=== PATIENT | male | born 1960 | race Caucasian/White ===

== ENCOUNTER → 2016-09-18 | Outpatient (CLI) | payer OTHER ==
[~2016-09-18] MED LIST: AMOXICILLIN500 M2 PO; ANAPROX DS550 MG PO; ANTIVERT/2525 M1 PO; ANTIVERT25 MG PO; AUGMENTIN 875 M1 TAB PO; GLUCOTROL5 MG PO; METFORMIN500 MG PO; PREVACID SOLUTA30 MG PO; PRILOSEC20 M2 PO; PRINIVIL5 M1 PO; ZANTAC150 MG PO; ZOFRAN ODT4 MG SL
== END | disposition home or self-care (01) ==
LOC: RAD 16:29
DX: R05 Cough (principal)

== ENCOUNTER 2017-12-08 14:29 | Emergency (ER) | payer OTHER ==
[~2017-12-08] VITALS: Ht 162.5 cm; Wt 77.1 kg
[2017-12-08] MEDS ORDERED: SEPTDS PO (14:38)
[2017-12-08] MEDS ORDERED: NAPROSYN500 MG PO (14:38)
[2017-12-08] MEDS ORDERED: KEFLEX500 M1 PO (14:38)
== END 2017-12-08 14:51 | disposition home or self-care (01) ==
LOC: ED 14:29
DX: L02.413 Cutaneous abscess of right upper limb (principal); R03.0 Elevated blood-pressure reading, without diagnosis of hypertension; E11.65 Type 2 diabetes mellitus with hyperglycemia; Z79.84 Long term (current) use of oral hypoglycemic drugs; Z79.899 Other long term (current) drug therapy

== ENCOUNTER → 2017-12-09 | Outpatient (CLI) | payer OTHER ==
[~2017-12-09] MED LIST changes: +GLIPIZIDE ER10 M1 PO; +KEFLEX500 M1 PO; +LEVEMIR FL100 UNIT/1 SQ; +METFORMIN HYD1000 MG PO; +NAPROSYN500 MG PO; +OMEPRAZOLE40 MG PO; +SEPTDS PO; +VITAMIN D-32000 UNIT PO
== END | disposition home or self-care (01) ==
LOC: WOUNDCARE 00:21
DX: S41.001A Unspecified open wound of right shoulder, initial encounter (principal); L03.113 Cellulitis of right upper limb; E11.65 Type 2 diabetes mellitus with hyperglycemia; Z98.49 Cataract extraction status, unspecified eye; X58.XXXA Exposure to other specified factors, initial encounter; Y93.89 Activity, other specified; Y92.89 Other specified places as the place of occurrence of the external cause; Y99.8 Other external cause status

== ENCOUNTER 2017-12-11 22:36 | Inpatient (IN) | payer OTHER ==
[~2017-12-11] VITALS: Ht 162.5 cm; Wt 77.2 kg
[2017-12-11 22:36] VITALS: BP 130/72
[~2017-12-11 22:36] MED LIST changes: -GLIPIZIDE ER10 M1 PO; -LEVEMIR FL100 UNIT/1 SQ; -METFORMIN HYD1000 MG PO; -OMEPRAZOLE40 MG PO; -VITAMIN D-32000 UNIT PO
[2017-12-12 00:10] LABS: ALBUMIN 4.2 gm/dl (3.1-4.5); ALKALINE PHOSPHATASE 66 U/L (45-117); BUN 20 mg/dl (7-24); CHLORIDE 104 mmol/L (98-107); CREATININE 1.31 mg/dL (0.70-1.30); LIPASE 137 U/L (73-393); POTASSIUM 4.3 mmol/L (3.5-5.1); SGOT/AST 38 IU/L (3-35); SGPT/ALT 58 U/L (12-78); SODIUM 137 mmol/L (136-145); TOTAL PROTEIN 8.4 gm/dL (6.4-8.2)
[2017-12-12 00:14] LABS: BASO % 0.4 % (0.0-1.0); EOS # 0.1 10*3/uL (0.0-0.4); EOS % 1.5 % (1.0-4.0); HEMATOCRIT 36.5 % (42.0-52.0); LYMPH # 0.9 10*3/uL (1.3-4.4); LYMPH % 20.4 % (27.0-41.0); MEAN CELL VOLUME 83.1 fl (80.0-94.0); MEAN CORPUSCULAR HGB 29.6 pg (27.0-31.0); MEAN CORPUSCULAR HGB CONC 35.6 g/dl (33.0-37.0); MEAN PLATELET VOLUME 11.1 fl (9.6-12.3); MONO # 0.5 10*3/uL (0.1-1.0); MONO % 11.9 % (3.0-9.0); NEUT % 65.6 % (47.0-73.0); PLATELET COUNT AUTOMATED 129 10*3/uL (130-400); RED BLOOD COUNT 4.39 10*6/uL (4.50-5.90); RED CELL DISTRI WIDTH 11.6 % (0-14.5); WHITE BLOOD COUNT 4.5 10*3/uL (4.8-10.8)
[2017-12-12] MEDS ORDERED: GLIPIZIDE ER10 M1 PO (00:31)
[2017-12-12] MEDS ORDERED: METFORMIN HYD1000 MG PO (00:32)
[2017-12-12] MEDS ORDERED: OMEPRAZOLE40 MG PO (00:33)
[2017-12-12 00:50] VITALS: BP 125/67
[2017-12-12 01:35] VITALS: BP 125/67
[2017-12-12 02:29] LABS: BILIRUBIN NEGATIVE (NEGATIVE); BLOOD NEGATIVE (NEGATIVE); CLARITY CLEAR (CLEAR); COLOR YELLOW (YELLOW); GLUCOSE TRACE (NEGATIVE); KETONE NEGATIVE (NEGATIVE); LEUKO ESTERASE NEGATIVE (NEGATIVE); NITRITE NEGATIVE (NEGATIVE); PH 5.5 (5.0-9.0); UROBILINOGEN 0.2 E.U./dl (0.2-1.0)
[2017-12-12 02:36] LABS: EPITHELIAL CELLS 0-5
[2017-12-12 02:37] LABS: WBC 0-2 wbc/hpf (0-5)
[2017-12-12 07:43] LABS: BASO % 0.3 % (0.0-1.0); EOS # 0.1 10*3/uL (0.0-0.4); EOS % 1.8 % (1.0-4.0); HEMATOCRIT 34.2 % (42.0-52.0); HEMOGLOBIN 12.1 g/dl (14.0-18.0); LYMPH # 0.7 10*3/uL (1.3-4.4); LYMPH % 18.6 % (27.0-41.0); MEAN CELL VOLUME 83.6 fl (80.0-94.0); MEAN CORPUSCULAR HGB 29.6 pg (27.0-31.0); MEAN CORPUSCULAR HGB CONC 35.4 g/dl (33.0-37.0); MONO # 0.4 10*3/uL (0.1-1.0); MONO % 9.9 % (3.0-9.0); NEUT # 2.7 10*3/uL (2.3-7.9); NEUT % 69.1 % (47.0-73.0); PLATELET COUNT AUTOMATED 115 10*3/uL (130-400); RED BLOOD COUNT 4.09 10*6/uL (4.50-5.90); RED CELL DISTRI WIDTH 11.8 % (0-14.5); WHITE BLOOD COUNT 3.9 10*3/uL (4.8-10.8)
[2017-12-12 08:00] VITALS: BP 114/56
[2017-12-12 08:25] LABS: ALBUMIN 3.7 gm/dl (3.1-4.5); BUN 13 mg/dl (7-24); CHLORIDE 108 mmol/L (98-107); CHOLESTEROL 152 mg/dL (<200); CREATININE 1.12 mg/dL (0.70-1.30); POTASSIUM 3.5 mmol/L (3.5-5.1); SGOT/AST 33 IU/L (3-35); SGPT/ALT 46 U/L (12-78); SODIUM 141 mmol/L (136-145); TRIGLYCERIDES 215 mg/dl (<150); VLDL CHOLESTEROL 43 mg/dL (6-40)
[2017-12-12 08:33] LABS: ALKALINE PHOSPHATASE 58 U/L (45-117); FREE T4 1.11 ng/dl (0.76-1.46); HDL CHOLESTEROL 22 mg/dl (40-60); LDL CHOLESTEROL 87 mg/dL (9-159); TOTAL PROTEIN 6.9 gm/dL (6.4-8.2)
[2017-12-12 08:58] LABS: VITAMIN D, 25-HYDROXY 20.6 ng/mL (30-100)
[2017-12-12 12:00] VITALS: BP 118/58
[2017-12-12 16:00] VITALS: BP 103/56
[2017-12-12 20:00] VITALS: BP 128/48
[2017-12-13] VITALS: BP 104/49
[2017-12-13 06:10] LABS: BASO % 0.3 % (0.0-1.0); EOS # 0.1 10*3/uL (0.0-0.4); EOS % 3.3 % (1.0-4.0); HEMATOCRIT 32.5 % (42.0-52.0); HEMOGLOBIN 11.3 g/dl (14.0-18.0); LYMPH # 0.8 10*3/uL (1.3-4.4); LYMPH % 24.9 % (27.0-41.0); MEAN CELL VOLUME 85.5 fl (80.0-94.0); MEAN CORPUSCULAR HGB 29.7 pg (27.0-31.0); MEAN CORPUSCULAR HGB CONC 34.8 g/dl (33.0-37.0); MEAN PLATELET VOLUME 11.1 fl (9.6-12.3); MONO # 0.3 10*3/uL (0.1-1.0); MONO % 10.6 % (3.0-9.0); NEUT # 1.8 10*3/uL (2.3-7.9); NEUT % 59.9 % (47.0-73.0); PLATELET COUNT AUTOMATED 113 10*3/uL (130-400); RED CELL DISTRI WIDTH 11.8 % (0-14.5)
[2017-12-13 08:00] VITALS: BP 105/46
[2017-12-13 16:00] VITALS: BP 115/56
[2017-12-13 20:00] VITALS: BP 145/75
[2017-12-14] VITALS: BP 113/49
[2017-12-14 06:12] LABS: BASO % 0.4 % (0.0-1.0); EOS # 0.2 10*3/uL (0.0-0.4); EOS % 5.3 % (1.0-4.0); HEMATOCRIT 33.3 % (42.0-52.0); HEMOGLOBIN 11.4 g/dl (14.0-18.0); MEAN CELL VOLUME 85.2 fl (80.0-94.0); MEAN CORPUSCULAR HGB 29.2 pg (27.0-31.0); MEAN CORPUSCULAR HGB CONC 34.2 g/dl (33.0-37.0); MEAN PLATELET VOLUME 11.1 fl (9.6-12.3); MONO # 0.3 10*3/uL (0.1-1.0); MONO % 10.6 % (3.0-9.0); NEUT # 1.3 10*3/uL (2.3-7.9); PLATELET COUNT AUTOMATED 114 10*3/uL (130-400); RED BLOOD COUNT 3.91 10*6/uL (4.50-5.90); RED CELL DISTRI WIDTH 11.9 % (0-14.5); WHITE BLOOD COUNT 2.8 10*3/uL (4.8-10.8)
[2017-12-14 06:29] LABS: BUN 9 mg/dl (7-24); CHLORIDE 110 mmol/L (98-107); CREATININE 0.96 mg/dL (0.70-1.30); POTASSIUM 3.8 mmol/L (3.5-5.1); SODIUM 144 mmol/L (136-145)
[2017-12-14 08:00] VITALS: BP 138/64
[2017-12-14] MEDS ORDERED: VITAMIN D-32000 UNIT PO (11:53)
[2017-12-14] MEDS ORDERED: KEFLEX500 M1 PO (12:00)
[2017-12-14] MEDS ORDERED: LEVEMIR FL100 UNIT/1 SQ ×2 (12:00→13:31)
== END 2017-12-14 13:52 | disposition home or self-care (01) | DRG 871 ==
LOC: ED 22:36 → EDHOLD 23:19 → 4E 23:19
PROVIDERS: Emergency Medicine; Internal Medicine; Student in an Organized Health Care Education/Training Program
DX: A41.9 Sepsis, unspecified organism (principal); N17.0 Acute kidney failure with tubular necrosis; L03.113 Cellulitis of right upper limb; D64.9 Anemia, unspecified; E86.0 Dehydration; E66.3 Overweight; E11.65 Type 2 diabetes mellitus with hyperglycemia; E55.9 Vitamin D deficiency, unspecified; R65.20 Severe sepsis without septic shock; K21.9 Gastro-esophageal reflux disease without esophagitis; R74.0 Nonspecific elevation of levels of transaminase and lactic acid dehydrogenase [LDH]; Z79.84 Long term (current) use of oral hypoglycemic drugs; Z79.899 Other long term (current) drug therapy; Z98.49 Cataract extraction status, unspecified eye; Z82.49 Family history of ischemic heart disease and other diseases of the circulatory system; Z80.1 Family history of malignant neoplasm of trachea, bronchus and lung; Z68.25 Body mass index [BMI] 25.0-25.9, adult

== ENCOUNTER → 2017-12-16 | Outpatient (CLI) | payer OTHER ==
[~2017-12-16] MED LIST changes: +GLIPIZIDE ER10 M1 PO; +LEVEMIR FL100 UNIT/1 SQ; +METFORMIN HYD1000 MG PO; +OMEPRAZOLE40 MG PO; +VITAMIN D-32000 UNIT PO
[2017-12-16 16:31] LABS: BASO % 0.3 % (0.0-1.0); EOS # 0.1 10*3/uL (0.0-0.4); EOS % 2.7 % (1.0-4.0); HEMATOCRIT 34.4 % (42.0-52.0); LYMPH # 1.3 10*3/uL (1.3-4.4); MEAN CELL VOLUME 85.4 fl (80.0-94.0); MEAN CORPUSCULAR HGB 29.8 pg (27.0-31.0); MEAN CORPUSCULAR HGB CONC 34.9 g/dl (33.0-37.0); MEAN PLATELET VOLUME 10.7 fl (9.6-12.3); MONO # 0.2 10*3/uL (0.1-1.0); MONO % 5.5 % (3.0-9.0); NEUT % 54.1 % (47.0-73.0); PLATELET COUNT AUTOMATED 149 10*3/uL (130-400); RED BLOOD COUNT 4.03 10*6/uL (4.50-5.90); WHITE BLOOD COUNT 3.6 10*3/uL (4.8-10.8)
== END | disposition home or self-care (01) ==
LOC: WOUNDCARE 04:43 → LAB 04:43 → WOUNDCARE 08:23
DX: D72.819 Decreased white blood cell count, unspecified (principal)

== ENCOUNTER → 2017-12-30 | Outpatient (CLI) | payer OTHER | END | disposition home or self-care (01) | LOC: WOUNDCARE 03:20 | DX: S41.001D Unspecified open wound of right shoulder, subsequent encounter (principal); T63.301D Toxic effect of unspecified spider venom, accidental (unintentional), subsequent encounter; E11.65 Type 2 diabetes mellitus with hyperglycemia; Z98.49 Cataract extraction status, unspecified eye; Z79.4 Long term (current) use of insulin ==

== ENCOUNTER → 2018-08-04 | Outpatient (CLI) | payer OTHER ==
[2018-08-04 12:53] LABS: BASO % 0.3 % (0.0-1.0); EOS # 0.1 10*3/uL (0.0-0.4); EOS % 1.7 % (1.0-4.0); HEMATOCRIT 45.4 % (42.0-52.0); HEMOGLOBIN 16.4 g/dl (14.0-18.0); LYMPH % 17.5 % (27.0-41.0); MEAN CORPUSCULAR HGB 30.7 pg (27.0-31.0); MEAN CORPUSCULAR HGB CONC 36.1 g/dl (33.0-37.0); MEAN PLATELET VOLUME 11.6 fl (9.6-12.3); MONO # 0.4 10*3/uL (0.1-1.0); MONO % 6.6 % (3.0-9.0); NEUT # 4.2 10*3/uL (2.3-7.9); NEUT % 73.4 % (47.0-73.0); PLATELET COUNT AUTOMATED 145 10*3/uL (130-400); RED BLOOD COUNT 5.34 10*6/uL (4.50-5.90); WHITE BLOOD COUNT 5.7 10*3/uL (4.8-10.8)
[2018-08-04 13:22] LABS: ALBUMIN 4.1 gm/dl (3.1-4.5); BUN 17 mg/dl (7-24); CHLORIDE 103 mmol/L (98-107); CHOLESTEROL 204 mg/dL (<200); CREATININE 1.27 mg/dL (0.70-1.30); HDL CHOLESTEROL 33 mg/dl (40-60); POTASSIUM 4.2 mmol/L (3.5-5.1); SGOT/AST 36 IU/L (3-35); SGPT/ALT 72 U/L (12-78); SODIUM 137 mmol/L (136-145)
[2018-08-04 13:28] LABS: ALKALINE PHOSPHATASE 61 U/L (45-117); LDL CHOLESTEROL 110 mg/dL (9-159); TOTAL PROTEIN 8.2 gm/dL (6.4-8.2); TRIGLYCERIDES 303 mg/dl (<150); VLDL CHOLESTEROL 61 mg/dL (6-40)
[2018-08-05 08:13] LABS: PROSTATE SPECIFIC AG, SERUM 0.4 ng/mL (0.0-4.0)
[2018-08-05 09:08] LABS: PROSTATE SPECIFIC AG FREE 0.11 ng/mL
== END | disposition home or self-care (01) ==
LOC: US 07:30 → LAB 11:57
PROVIDERS: Registered Nurse Flight; Urology
DX: E11.9 Type 2 diabetes mellitus without complications (principal); E11.65 Type 2 diabetes mellitus with hyperglycemia; E78.5 Hyperlipidemia, unspecified; N28.89 Other specified disorders of kidney and ureter; M54.5 Low back pain

== ENCOUNTER → 2018-09-02 | Outpatient (CLI) | payer OTHER | END | disposition home or self-care (01) | LOC: RAD 15:37 | DX: J40 Bronchitis, not specified as acute or chronic (principal) ==

== ENCOUNTER → 2018-11-04 | Outpatient (CLI) | payer OTHER ==
[2018-11-04 14:11] LABS: ALBUMIN 4.2 gm/dl (3.1-4.5); ALKALINE PHOSPHATASE 51 U/L (45-117); BUN 14 mg/dl (7-24); CHLORIDE 103 mmol/L (98-107); CHOLESTEROL 195 mg/dL (<200); HDL CHOLESTEROL 33 mg/dl (40-60); LDL CHOLESTEROL 95 mg/dL (9-159); POTASSIUM 3.8 mmol/L (3.5-5.1); SGOT/AST 37 IU/L (3-35); SGPT/ALT 77 U/L (12-78); SODIUM 137 mmol/L (136-145); TOTAL PROTEIN 7.7 gm/dL (6.4-8.2); TRIGLYCERIDES 337 mg/dl (<150); VLDL CHOLESTEROL 67 mg/dL (6-40)
== END | disposition home or self-care (01) ==
LOC: LAB 13:11
PROVIDERS: Registered Nurse Flight
DX: E11.65 Type 2 diabetes mellitus with hyperglycemia (principal); E78.5 Hyperlipidemia, unspecified

== ENCOUNTER → 2019-05-10 | Outpatient (CLI) | payer OTHER ==
[~2019-05-10] MED LIST changes: +ATIVAN1 MG PO
[2019-05-10 12:47] LABS: BASO % 0.7 % (0.0-1.0); EOS # 0.2 10*3/uL (0.0-0.4); EOS % 5.5 % (1.0-4.0); HEMATOCRIT 43.6 % (42.0-52.0); HEMOGLOBIN 15.5 g/dl (14.0-18.0); LYMPH # 1.1 10*3/uL (1.3-4.4); LYMPH % 26.3 % (27.0-41.0); MEAN CELL VOLUME 87.2 fl (80.0-94.0); MEAN CORPUSCULAR HGB CONC 35.6 g/dl (33.0-37.0); MEAN PLATELET VOLUME 11.3 fl (9.6-12.3); MONO # 0.3 10*3/uL (0.1-1.0); MONO % 6.2 % (3.0-9.0); NEUT # 2.6 10*3/uL (2.3-7.9); NEUT % 60.8 % (47.0-73.0); PLATELET COUNT AUTOMATED 163 10*3/uL (130-400); RED CELL DISTRI WIDTH 11.3 % (0-14.5); WHITE BLOOD COUNT 4.3 10*3/uL (4.8-10.8)
[2019-05-10 13:09] LABS: ALBUMIN 3.9 gm/dl (3.1-4.5); ALKALINE PHOSPHATASE 56 U/L (45-117); BUN 15 mg/dl (7-24); CHLORIDE 103 mmol/L (98-107); CHOLESTEROL 175 mg/dL (<200); CREATININE 1.12 mg/dL (0.70-1.30); HDL CHOLESTEROL 36 mg/dl (40-60); LDL CHOLESTEROL 106 mg/dL (9-159); POTASSIUM 4.4 mmol/L (3.5-5.1); SGOT/AST 30 IU/L (3-35); SGPT/ALT 50 U/L (12-78); SODIUM 136 mmol/L (136-145); TOTAL PROTEIN 7.9 gm/dL (6.4-8.2); TRIGLYCERIDES 164 mg/dl (<150); VLDL CHOLESTEROL 33 mg/dL (6-40)
[2019-05-11 20:06] LABS: TESTOSTERONE FREE, (DIRECT) 4.3 pg/mL (6.6-18.1)
== END | disposition home or self-care (01) ==
LOC: LAB 12:19
PROVIDERS: Registered Nurse Flight; Urology
DX: E11.65 Type 2 diabetes mellitus with hyperglycemia (principal); I10 Essential (primary) hypertension; E78.5 Hyperlipidemia, unspecified; R53.83 Other fatigue

== ENCOUNTER 2019-05-11 07:48 | Emergency (ER) | payer OTHER ==
[~2019-05-11] VITALS: Ht 162.5 cm; Wt 68.0 kg
[~2019-05-11 07:48] MED LIST changes: -ATIVAN1 MG PO
[2019-05-11] MEDS ORDERED: ATIVAN1 MG PO (10:52)
== END 2019-05-11 11:00 | disposition home or self-care (01) ==
LOC: ED 07:48
DX: F41.9 Anxiety disorder, unspecified (principal); E11.9 Type 2 diabetes mellitus without complications; K21.9 Gastro-esophageal reflux disease without esophagitis; Z79.2 Long term (current) use of antibiotics; Z79.899 Other long term (current) drug therapy

== ENCOUNTER → 2019-10-27 | Outpatient (CLI) | payer BC ==
[~2019-10-27] MED LIST changes: +ATIVAN1 MG PO
[2019-10-27 14:20] LABS: ALBUMIN 4.3 gm/dl (3.1-4.5); ALKALINE PHOSPHATASE 42 U/L (45-117); BUN 13 mg/dl (7-24); CHLORIDE 104 mmol/L (98-107); CHOLESTEROL 214 mg/dL (<200); CREATININE 0.92 mg/dL (0.70-1.30); HDL CHOLESTEROL 39 mg/dl (40-60); LDL CHOLESTEROL 130 mg/dL (9-159); POTASSIUM 4.1 mmol/L (3.5-5.1); SGOT/AST 16 IU/L (3-35); SGPT/ALT 28 U/L (12-78); SODIUM 140 mmol/L (136-145); TOTAL PROTEIN 8.1 gm/dL (6.4-8.2); TRIGLYCERIDES 224 mg/dl (<150); VLDL CHOLESTEROL 45 mg/dL (6-40)
== END | disposition home or self-care (01) ==
LOC: LAB 13:18
PROVIDERS: Registered Nurse Flight
DX: E11.65 Type 2 diabetes mellitus with hyperglycemia (principal); R79.89 Other specified abnormal findings of blood chemistry; E78.5 Hyperlipidemia, unspecified

== ENCOUNTER → 2020-03-24 | Outpatient (CLI) | payer BC ==
[2020-03-24 11:01] LABS: BASO % 0.5 % (0.0-1.0); EOS # 0.1 10*3/uL (0.0-0.4); EOS % 2.7 % (1.0-4.0); LYMPH # 1.4 10*3/uL (1.3-4.4); LYMPH % 34.5 % (27.0-41.0); MEAN CELL VOLUME 86.5 fl (80.0-94.0); MEAN CORPUSCULAR HGB 30.4 pg (27.0-31.0); MEAN CORPUSCULAR HGB CONC 35.1 g/dl (33.0-37.0); MEAN PLATELET VOLUME 11.3 fl (9.6-12.3); MONO # 0.2 10*3/uL (0.1-1.0); MONO % 5.4 % (3.0-9.0); NEUT # 2.3 10*3/uL (2.3-7.9); NEUT % 56.4 % (47.0-73.0); PLATELET COUNT AUTOMATED 127 10*3/uL (130-400); RED BLOOD COUNT 4.74 10*6/uL (4.50-5.90); RED CELL DISTRI WIDTH 11.8 % (0-14.5); WHITE BLOOD COUNT 4.1 10*3/uL (4.8-10.8)
[2020-03-24 11:30] LABS: ALBUMIN 4.2 gm/dl (3.1-4.5); BUN 17 mg/dl (7-24); CHLORIDE 107 mmol/L (98-107); POTASSIUM 4.2 mmol/L (3.5-5.1); SGOT/AST 21 IU/L (3-35); SGPT/ALT 39 U/L (12-78); SODIUM 138 mmol/L (136-145)
[2020-03-24 11:40] LABS: ALKALINE PHOSPHATASE 48 U/L (45-117); CREATININE 1.17 mg/dL (0.70-1.30); T3 UPTAKE 35 % (31-39); THYROXINE (T4) TOTAL 6.9 ug/dl (4.5-12.1); TOTAL PROTEIN 7.8 gm/dL (6.4-8.2)
[2020-03-25 05:06] LABS: FOLLICLE STIMULATING HORMONE 6.1 mIU/mL (1.5-12.4); LUTEINIZING HORMONE 5.3 mIU/mL (1.7-8.6); PROGESTERONE 0.3 ng/mL (0.0-0.5)
== END | disposition home or self-care (01) ==
LOC: LAB 10:37
PROVIDERS: ATTEND Urology
DX: R53.82 Chronic fatigue, unspecified (principal); D40.0 Neoplasm of uncertain behavior of prostate

== ENCOUNTER 2021-01-14 09:08 | Emergency (ER) | payer SELFPAY ==
[~2021-01-14] VITALS: Ht 162.5 cm; Wt 77.1 kg
[2021-01-14 09:53] LABS: BASO % 0.3 % (0.0-1.0); EOS # 0.1 10*3/uL (0.0-0.4); EOS % 1.8 % (1.0-4.0); HEMATOCRIT 40.5 % (42.0-52.0); LYMPH # 0.8 10*3/uL (1.3-4.4); LYMPH % 11.7 % (27.0-41.0); MEAN CELL VOLUME 84.6 fl (80.0-94.0); MEAN CORPUSCULAR HGB 30.3 pg (27.0-31.0); MEAN CORPUSCULAR HGB CONC 35.8 g/dl (33.0-37.0); MEAN PLATELET VOLUME 11.6 fl (9.6-12.3); MONO # 0.4 10*3/uL (0.1-1.0); MONO % 5.5 % (3.0-9.0); NEUT # 5.3 10*3/uL (2.3-7.9); NEUT % 80.2 % (47.0-73.0); PLATELET COUNT AUTOMATED 113 10*3/uL (130-400); RED BLOOD COUNT 4.79 10*6/uL (4.50-5.90); RED CELL DISTRI WIDTH 11.9 % (0-14.5); WHITE BLOOD COUNT 6.6 10*3/uL (4.8-10.8)
[2021-01-14 10:06] LABS: ALBUMIN 4.2 gm/dl (3.1-4.5); ALKALINE PHOSPHATASE 57 U/L (45-117); BUN 19 mg/dl (7-24); CHLORIDE 106 mmol/L (98-107); CREATININE 1.09 mg/dL (0.70-1.30); POTASSIUM 4.1 mmol/L (3.5-5.1); SGOT/AST 38 IU/L (3-35); SGPT/ALT 91 U/L (12-78); SODIUM 135 mmol/L (136-145); TOTAL PROTEIN 7.9 gm/dL (6.4-8.2)
[2021-01-14 12:47] LABS: BILIRUBIN Negative (Negative); BLOOD Negative (Negative); CLARITY Clear (Clear); COLOR Yellow (Yellow); GLUCOSE 3+ (Negative); KETONE 1+ (Negative); LEUKO ESTERASE Negative (Negative); NITRITE Negative (Negative); PH 5.5 (4.5-8.0); SPECIFIC GRAVITY >= 1.030 (1.001-1.030); UROBILINOGEN 0.2 E.U./dl (0.0-1.0)
[2021-01-14] MEDS ORDERED: PHENERGAN25 M3 PO (12:58)
[2021-01-14] MEDS ORDERED: ZOFRAN4 MG PO (12:58)
== END 2021-01-14 14:05 | disposition home or self-care (01) ==
LOC: ED 09:08
PROVIDERS: Student in an Organized Health Care Education/Training Program
DX: K52.9 Noninfective gastroenteritis and colitis, unspecified (principal); R11.2 Nausea with vomiting, unspecified; Z79.2 Long term (current) use of antibiotics; Z79.899 Other long term (current) drug therapy